=== PATIENT | male | born 1985 ===

== ENCOUNTER 2019-04-02 18:17 | Emergency (ER) | payer BC ==
[2019-04-02 18:30] VITALS: BP 145/76
--- NOTE | 2019-04-02 18:41 | UC ---
Abdominal Pain Male HPI - HPI Summary HPI Summary: The patient is a 34-year-old male that has had about a week and a half history of left sided abdominal pain/left flank pain. He has had no fever, chills or night sweats. Initially the pain was moderate to severe and was associated with nausea and vomiting 1. For the whole time his abdomen has felt bloated. He has had intermittent diarrhea alternating with normal bowel movements. He denies any UTI symptoms. He denies any back pain or pain radiating to his left testicle. He has not noticed any blood in his stools. He has a physician at [facility] and [place] because he is a new patient they could not see him until early April. - History of Current Complaint Chief Complaint: UCAbdominalPain Stated Complaint: ABDOMINAL PAIN Hx Obtained From: Patient Onset/Duration: Gradual Onset, Lasting Days Timing: Constant Severity Initially: Moderate Severity Currently: Mild Pain Intensity: 2 Pain Scale Used: 0-10 Numeric Location: Discrete At: LUQ, Other - see image Radiates: No Character: Colicy Aggravating Factor(s): Nothing Alleviating Factor(s): Nothing Associated Signs And Symptoms: Positive: Nausea, Vomiting - x1, Diarrhea. Negative: Diaphoresis, Fever, Cough, Chest Pain, Dizzy, Back Pain, Constipation , Blood in Stool, Urinary Symptoms, Decreased Appetite, Penile Discharge Male Torso: 1 - pain here - Allergies/Home Medications Allergies/Adverse Reactions: Allergies Allergy/AdvReac Type Severity Reaction Status Date / Time lactose Allergy GI issues Verified 04/02/19 18:31 Nutella Allergy mouth Uncoded 04/02/19 18:32 itching Home Medications: Home Medications Hydrochlorothiazide TAB* [Hydrodiuril TAB*] 25 mg PO EVERY OTHER DAY 04/02/19 [ History Confirmed 04/02/19] L.acidoph,Paracasei, B.lactis [Probiotic] 1 each PO DAILY 04/02/19 [History Confirmed 04/02/19] Lisinopril TAB* [Prinivil TAB 5 MG*] 1 tab PO DAILY 04/02/19 [History Confirmed 04/02/19] PMH/Surg Hx/FS Hx/Imm Hx Previously Healthy: Yes Cardiovascular History: Hypertension - Surgical History Surgical History: None - Family History Known Family History: Positive: Cardiac Disease, Hypertension, Diabetes, Other - dad with hx of diverticulitis - Social History Alcohol Use: Occasionally Substance Use Type: None Smoking Status (MU): Never Smoked Tobacco Review of Systems All Other Systems Reviewed And Are Negative: Yes Constitutional: Positive: Negative Skin: Positive: Negative Eyes: Positive: Negative ENT: Positive: Negative Respiratory: Positive: Negative Cardiovascular: Positive: Negative Gastrointestinal: Positive: Abdominal Pain, Vomiting - 1 time only, Diarrhea, Nausea Genitourinary: Positive: Negative Motor: Positive: Negative Neurovascular: Positive: Negative Musculoskeletal: Positive: Negative Neurological: Positive: Negative Psychological: Positive: Negative Physical Exam Triage Information Reviewed: Yes Appearance: Well-Appearing, No Pain Distress, Well-Nourished Vital Signs: Initial Vital Signs Temp 97.4 F 04/02/19 18:24 Pulse 69 04/02/19 18:24 Resp 16 04/02/19 18:24 BP 145/76 04/02/19 18:24 Pulse Ox 98 04/02/19 18:24 Vital Signs Reviewed: Yes Eyes: Positive: Conjunctiva Clear ENT: Positive: Normal ENT inspection. Negative: Nasal congestion, Nasal drainage, Trismus, Muffled voice, Hoarse voice Neck: Positive: Supple, Nontender Respiratory: Positive: Lungs clear, Normal breath sounds, No respiratory distress Cardiovascular: Positive: RRR, No Murmur Abdomen Description: Positive: No Organomegaly, Soft. Negative: Nontender - slight tender left upper qudrient, CVA Tenderness (R), CVA Tenderness (L), Distended, Guarding, Hepatomegaly, McBurney's Point Tenderness, Peritoneal Signs , Pulsatile Mass, Splenomegaly Musculoskeletal: Positive: ROM Intact, No Edema Neurological: Positive: Alert Psychological Exam: Normal Skin Exam: Normal Diagnostics - Laboratory Lab Results: UA negative Abd Pain Male Course/Dx - Course Course Of Treatment: I suggested we get a CT due to my concerns of diverticulitis The patient REFUSES my suggest but will opt for antibiotics and will get rechecked for new or worsening symptoms - Differential Dx/Clinical Impression Provider Diagnosis: Left sided abdominal pain of unknown cause Discharge ED - Sign-Out/Discharge Documenting (check all that apply): Patient Departure All imaging exams completed and their final reports reviewed: No Studies - Discharge Plan Condition: Stable Disposition: HOME Patient Education Materials: Diverticulitis (ED) Additional Instructions: we will treat you for probable diverticulits TO ER FOR NEW OR WORSENING SYMPTOMS FEVER VOMITING INCREASED PAIN recheck in 48-72 hours if not better if you are unable to get rechecked by your [facility] doctor you are welcome to return here - Billing Disposition and Condition Condition: STABLE Disposition: Home
== END 2019-04-02 19:24 | disposition home or self-care (01) ==
LOC: UCEAST 18:17
DX: R10.9 Unspecified abdominal pain (principal); R11.2 Nausea with vomiting, unspecified; R19.7 Diarrhea, unspecified; I10 Essential (primary) hypertension; Z91.011 Allergy to milk products; Z91.018 Allergy to other foods; Z79.899 Other long term (current) drug therapy
CPT/HCPCS: 81003; 99212; G0463